=== PATIENT | female | born 1980 | race Caucasian/White ===

== ENCOUNTER 2016-12-06 08:24 | Day surgery (SDC) | payer OTHER ==
[~2016-12-06] VITALS: Ht 175.3 cm; Wt 106.6 kg
[~2016-12-06 08:24] MED LIST: PAIN RELIEF500 M1 PO
[2016-12-06] MEDS ORDERED: LISINOPRIL20 MG PO (08:47)
[2016-12-06] MEDS ORDERED: PEPCID20 MG PO (08:48)
--- NOTE | 2016-12-06 10:13 | NUR ---
12/06/16 1013 Anny Matias 1008 PATIENT ARRIVES SLEEPING, AWAKENS TO VERBAL STIMULI, DENIES PAIN OR NAUSEA THEN BACK TO SLEEP. NC AT 3 LITERS. PATIENT ALSO HAS HICCUPS.
--- NOTE | 2016-12-10 07:55 | OR ---
[facility] [address], [place] [address] Signed PREOPERATIVE DIAGNOSES: 1. Nausea and vomiting. 2. Hematemesis. 3. A 70-pound weight loss. 4. Gastroesophageal reflux disease. POSTOPERATIVE DIAGNOSIS: Mild gastritis. PROCEDURE PERFORMED: Esophagogastroduodenoscopy and biopsies of the duodenum, pyloric channel, antrum, and fundus. ESTIMATED BLOOD LOSS: None. INDICATIONS: Kyle is a 36-year-old female, who was asked to see me for upper endoscopy. She has had difficulties with nausea, vomiting, and hematemesis. Her weight came down 70 pounds. She told me today that when she had cut back her food, she is kind of used to that and she has continued to lose some weight. She had been on Nexium initially and thought it was helping and then decided to switch to Zantac and did not do anything, so she went back to Nexium, which seems to be helping a little bit. She also smokes marijuana for the nausea. However, her nausea seems to be in the morning. I explained many this actually could be from the mariju a na. There is also some mention in the notes about acid reflux and possible cyclic vomiting syndrome. She told me her had an open heel repair and her dad had a laparoscopic repair performed. Consequently, she is aware that there is surgery availabl e for acid reflux. In the office, I gave her a pamphlet on upper endoscopy and we reviewed the nature of the test along with the risks including, but not limited to gas bloating, crampy abdominal pain, bleeding, perforation requiring surgery, and missed di agnosis. We also discussed the need for IV conscious sedation. She had expressed understanding and wished to proceed. DESCRIPTION OF PROCEDURE: Kyle was taken into endoscopy suite, placed in a supine semi-recumbent position. The posterior oropharynx was ane sthetized with Hurricaine spray. Bite block was utilized for the case. She was given 9 mg of Versed and 100 mcg of fentanyl for the procedure. The adult gastroscope was introduced and advanced out into the third portion of the duodenum under direct visual i zation of the camera without difficulty. The duodenum and pyloric channel were not particularly concerning. We took biopsies at the duodenum and pyloric channel as well as the antrum. The antrum showed some mild erythematous changes. I saw no ulcerations. We also took a biopsy of the antrum for CLOtest. Upon retroflexion of scope, I did not see any gastric varices. We really could not convince herself she has a hiatal hernia. The scope was withdrawn into the proximal stomach. We Electronically Signed By: JOHNY ESPINAL MD 12/10/16 0755 PATIENT NAME: KYLE DUVAL OPERATIVE REPORT DATE OF : 76 PHYSICIAN: JOHNY ESPINAL MD REPORT #: [id number] REPORT IS CONFIDENTIAL AND NOT TO BE RELEASED WITHOUT AUTHORIZATION [address] [address] Signed took a biopsy out of the fu n dus as well. We then withdrew the scope through the GE junction, which was compliant without stricture. There was minimal if any disruption to the Z-line. There was no Chand mucosa and no distal esophagitis. The middle and upper esophagus were unremarka ble. After this, the gas was suctioned out and the colonoscope removed. Kyle tolerated the procedure quite well. RECOMMENDATIONS: I will see Kyle back in my office in 7 to 14 days to review her results. There are certainly more tests that she could undergo and one always has to keep in mind the gallbladder. MD VIRGINIA Soto/Carmella /[id number] MD ANDREW Soto MD Electronically Signed By: JOHNY ESPINAL MD 12/10/16 0755 PATIENT NAME: KYLE DUVAL OPERATIVE REPORT DATE OF : 76 PHYSICIAN: JOHNY ESPINAL MD REPORT #: [id number] REPORT IS CONFIDENTIAL AND NOT TO BE RELEASED WITHOUT AUTHORIZATION
== END 2016-12-06 10:35 | disposition home or self-care (01) ==
LOC: OPS 08:24 → DS 08:24 → OPS 09:00
PROVIDERS: Colon & Rectal Surgery
PROC: 0DB98ZX Excision of Duodenum, Via Natural or Artificial Opening Endoscopic, Diagnostic (ICD-10-PCS; 2016-12-06)
PROC: 0DB68ZX Excision of Stomach, Via Natural or Artificial Opening Endoscopic, Diagnostic (ICD-10-PCS; 2016-12-06)
PROC: 0DB78ZX Excision of Stomach, Pylorus, Via Natural or Artificial Opening Endoscopic, Diagnostic (ICD-10-PCS; principal; 2016-12-06 09:45)
DX: K29.50 Unspecified chronic gastritis without bleeding (principal); K29.80 Duodenitis without bleeding; G43.909 Migraine, unspecified, not intractable, without status migrainosus; G47.33 Obstructive sleep apnea (adult) (pediatric); K21.9 Gastro-esophageal reflux disease without esophagitis; G89.4 Chronic pain syndrome; Z98.890 Other specified postprocedural states
CPT/HCPCS: 84703; 86677; 99152; 99153; J2250; J3010; J7120